=== PATIENT | male | born 1965 | race Caucasian/White ===

== ENCOUNTER 2020-04-03 12:20 | Emergency (ER) | payer OTHER ==
[~2020-04-03] VITALS: Ht 188 cm; Wt 89.8 kg
[2020-04-03] MEDS ORDERED: KEFLEX500 M1 PO (13:57)
[2020-04-03 14:27] VITALS: BP 116/80
== END 2020-04-03 14:30 | disposition home or self-care (01) ==
LOC: ER 12:20
DX: S51.012A Laceration without foreign body of left elbow, initial encounter (principal); W27.8XXA Contact with other nonpowered hand tool, initial encounter; Y93.89 Activity, other specified; Y92.098 Other place in other non-institutional residence as the place of occurrence of the external cause; Y99.8 Other external cause status